=== PATIENT | female | born 1960 | race Caucasian/White ===

== ENCOUNTER → 2018-10-06 | Outpatient (REF) | LOC: M LAB LCGH 13:18 | PROVIDERS: ATTEND Physician Assistant | DX: Z12.4 Encounter for screening for malignant neoplasm of cervix (principal) ==

== ENCOUNTER → 2020-12-03 | Outpatient (CLI) | payer MEDICARE ==
--- NOTE | 2020-12-03 15:45 | REP ---
INDICATION: PVD COMPARISON: None. TECHNIQUE: Real time sheehan scale and color Doppler evaluation of the bilateral lower extremity arterial vasculature using linear high frequency transducer. FINDINGS: Right lower extremity demonstrates mild to moderate atheromatous plaquing with biphasic and triphasic wave patterns and no evidence for stenosis or occlusion. Right CLIVE: 1.24 Left lower extremity demonstrates mild to moderate atheromatous plaquing with monophasic wave patterns from the common femoral artery to the ankle raising the possibility of more proximal stenosis. There is evidence for 3.5:1 stenosis at the origin of the superficial femoral artery and 2.8:1 stenosis at the distal superficial femoral artery. Left CLIVE: 0.82 Peak systolic velocities (cm/sec) Common femoral artery: Right 114; Left 175 Profunda femoris: Right 116; Left 107 SFA (proximal): Right 126; Left 454 SFA (mid): Right 125; Left 124 SFA (distal): Right 103; Left 95/281 Popliteal artery: Right 102; Left 116 AYANNA (prox.): Right 83; Left 152 Tibioperoneal trunk: Right 54; Left 29 SPIRAL GEAR GENERATOR (prox.): Right 60; Left 42 SPIRAL GEAR GENERATOR (distal): Right 61; Left 50 AYANNA (distal): Right 76; Left 90 IMPRESSION: 1. Mild to moderate bilateral atheromatous plaquing. 2. Possible stenosis proximal to the left common femoral artery causing diffuse monophasic wave patterns to the left lower extremity. 3. Areas of stenosis in the left superficial femoral artery as described above. <Electronically signed by Bruno Peace > 12/03/20 [id number]
== END ==
LOC: M RAD 12:59
PROVIDERS: ATTEND Physician Assistant
DX: I73.89 Other specified peripheral vascular diseases (principal)

== ENCOUNTER → 2022-04-20 | Outpatient (CLI) | payer MEDICARE | LOC: M RAD 12:53 | PROVIDERS: ATTEND Surgery Vascular Surgery | DX: I73.9 Peripheral vascular disease, unspecified (principal) ==